=== PATIENT | female | born 1985 | race African-American/Black ===

== ENCOUNTER 2016-12-06 09:04 | Emergency (ER) | payer MEDICAID ==
[~2016-12-06] VITALS: Ht 170.2 cm; Wt 88.9 kg
[~2016-12-06 09:04] MED LIST: ALBUTEROL SULF8.5 GM INH; AZITHROMYCIN250 MG ORAL; BACTRIM DOUBLE S1 E1 ORAL; COLACE100 MG ORAL; CYCLOBENZAPRINE10 MG ORAL; FLONASE1 SPRAYS; IBUPROFEN800 MG ORAL; METROGEL-VAGINA70 G1 VAGIN; NITROFURANTOIN100 M2 ORAL; NORCO 5-325 TA1 EACH ORAL; PRILOSEC20 MG ORAL; PSEUDOEPHEDRIN120 MG PO; TAMIFLU75 MG ORAL; UNOBMED
[2016-12-06] MEDS ORDERED: ROBAXIN-750750 MG PO (09:29)
[2016-12-06] MEDS ORDERED: IBUPROFEN600 MG ORAL (09:29)
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
[2016-12-06 09:50] VITALS: BP 133/89
== END 2016-12-06 09:50 | disposition home or self-care (01) ==
LOC: EMR 09:31
DX: M54.2 Cervicalgia (principal); J45.909 Unspecified asthma, uncomplicated
CPT/HCPCS: 99284

== ENCOUNTER 2018-07-27 11:59 | Emergency (ER) | payer MEDICAID ==
[~2018-07-27] VITALS: Ht 170.2 cm; Wt 96.6 kg
[~2018-07-27 11:59] MED LIST changes: +IBUPROFEN600 MG ORAL; +ROBAXIN-750750 MG PO
[2018-07-27] MEDS ORDERED: NKM (12:14)
[2018-07-27 12:25] VITALS: BP 110/72
--- NOTE | 2018-07-27 12:25 | NUR ---
ED Nurse Note: pt walked in c/o upper back pain x 1 year denies trauma, pt was seen by ermd. pt not in acute distress. will continue to monitor.
[2018-07-27] MEDS ORDERED: Methocarbamol 750mg tab ORAL ONE (12:30)
[2018-07-27] MEDS ORDERED: IBUPROFEN600 MG ORAL (13:20)
[2018-07-27] MEDS ORDERED: LIDODERM700 M1 TOPIC (13:20)
[2018-07-27] MEDS ORDERED: ROBAXIN-750750 MG PO (13:20)
--- NOTE | 2018-07-27 13:32 | NUR ---
ED Nurse Note: pt cleared to be d/c per ERMD, pt discharge and aftercare instruction provided w/ prescription, pt advised to follow up with pcp or return to ed if changes in condition, pt education done via discussion and handout, pt verbalized understanding and agrees with plan, vss, ambulatory w/ steady gait, pt left w/ all belongings.
--- NOTE | 2018-07-27 14:24 | Emergency Room Report ---
History of Present Illness General Chief Complaint: Back Pain-No Injury Source: Patient Present Illness HPI 32-year-old female presents ED for evaluation. Complaining of back pain. Notes pain to the upper back. Sharp, 8 out of 10, nonradiating. Worse with twisting and bending. Denies any recent fall or injury. States she's had this pain for many years. Believes it has to do with her weight. Denies chest pain or shortness of breath. Denies flank pain. Denies nausea or vomiting. No other aggravating relieving factors. Denies any other associated symptoms Allergies: Coded Allergies: No Known Allergies (Unverified , 07/27/18) Patient History Past Medical History: asthma Past Surgical History: none Pertinent Family History: none Social History: Denies: smoking, alcohol use, drug use Last Menstrual Period: 07/19/18 Now: No Immunizations: UTD Reviewed Nursing Documentation: PMH: Agreed; PSxH: Agreed Nursing Documentation-PMH Past Medical History: No History, Except For Hx Asthma: Yes Review of Systems All Other Systems: negative except mentioned in HPI Physical Exam Vital Signs Date Time Temp Pulse Resp B/P (MAP) Pulse Ox O2 Delivery O2 Flow Rate FiO2 07/27/18 12:09 98.2 64 16 110/72 (85) 98 Room Air Sp02 EP Interpretation: reviewed, normal General Appearance: no apparent distress, alert, GCS 15, non-toxic, obese Head: normocephalic, atraumatic Eyes: bilateral eye normal inspection, bilateral eye PERRL ENT: hearing grossly normal, normal pharynx, no angioedema, normal voice Neck: full range of motion, supple/symm/no masses Respiratory: chest non-tender, lungs clear, normal breath sounds, speaking full sentences Cardiovascular #1: regular rate, rhythm, no edema Cardiovascular #2: 2+ carotid (R), 2+ carotid (L), 2+ radial (R), 2+ radial (L) , 2+ dorsalis pedis (R), 2+ dorsalis pedis (L) Gastrointestinal: normal bowel sounds, non tender, soft, non-distended, no guarding, no rebound Rectal: deferred Genitourinary: normal inspection, no CVA tenderness, no vertebral tenderness Musculoskeletal: gait/station normal, normal range of motion, other - paraspinal upper thoracic tenderness Neurologic: alert, oriented x3, responsive, motor strength/tone normal, sensory intact, speech normal Psychiatric: judgement/insight normal, memory normal, mood/affect normal, no suicidal/homicidal ideation Reflexes: 3+ bicep (R), 3+ bicep (L), 3+ tricep (R), 3+ tricep (L), 3+ knee (R) , 3+ knee (L) Skin: normal color, no rash, warm/dry, well hydrated Lymphatic: no adenopathy Medical Decision Making Diagnostic Impression: Primary Impression: Upper back pain ER Course Hospital Course 32-year-old female presents ED complaining of upper back pain. No evidence of trauma Differential diagnoses include: pyelonephritis, kidney stone, muscle strain, Lspine fracture Clinical course Patient placed on stretcher. After initial history, physical exam reveals female in no acute distress. There is no vertebral body tenderness. No flank pain. Some paraspinal upper thoracic tenderness noted. Based on my assessment pain is muscular. Does not require imaging. Patient agrees with assessment. I ordered motrin, robaxin and lidoderm Upon reassessment patient states pain has improved. Safe for discharge with close outpatient follow-up. States she has a PMD Diagnosis - upper back pain Stable and discharged to home with prescription for motrin, robaxin, lidoderm. Followup with PMD. Return to ED if symptoms recur or worsen Last Vital Signs Date Time Temp Pulse Resp B/P (MAP) Pulse Ox O2 Delivery O2 Flow Rate FiO2 07/27/18 13:32 98.0 90 16 118/76 98 Room Air Status: improved Disposition: HOME, SELF-CARE Condition: Stable Scripts Lidocaine (Lidoderm) 1 Each Adh..patch 1 PATCH TOPIC DAILY, #7 PATCH 0 Refills Patch(es) may remain in place for up to 12 hours in any 24-hour period. Prov: Matehw Cisneros MD 07/27/18 Methocarbamol* (ROBAXIN-750*) 750 Mg Tablet 750 MG PO QID, #28 TAB 0 Refills Prov: Mathew Cisneros MD 07/27/18 Ibuprofen* (MOTRIN*) 600 Mg Tablet 600 MG ORAL Q8H PRN for For Pain, #30 TAB 0 Refills Prov: Mathew Cisneros MD 07/27/18 Referrals: NON PHYSICIAN (PCP) Patient Instructions: Back Pain, Adult Koreyesakota,Mathew MD July 27, 2018 14:24
== END 2018-07-27 13:32 | disposition home or self-care (01) ==
LOC: EMR 13:25
DX: M54.6 Pain in thoracic spine (principal); J45.909 Unspecified asthma, uncomplicated
CPT/HCPCS: 99283

== ENCOUNTER 2018-11-04 19:31 | Emergency (ER) | payer MEDICAID ==
[~2018-11-04] VITALS: Ht 170.2 cm; Wt 94.3 kg
[~2018-11-04 19:31] MED LIST changes: +LIDODERM700 M1 TOPIC; +NKM
--- NOTE | 2018-11-04 19:44 | NUR ---
ED Nurse Note: Pt walked in c/o congestion, cough since 11/03. Pt worse throughout the day. Hx of asthma. Pt is AO x 4times, VSS, on room air no distress. ERMD seen Pt at bedside.
[2018-11-04] MEDS ORDERED: Albuterol ud Inhalation HHN ONE (19:45)
[2018-11-04] MEDS ORDERED: Ipratropium 0.02% Inh Soln 2.5ml UD HHN ONE (19:45)
[2018-11-04 19:48] VITALS: BP 134/72
--- NOTE | 2018-11-04 20:02 | NUR ---
ED Nurse Note: Breathing treatment at bedside.
[2018-11-04] MEDS ORDERED: PROAIR HFA8.5 GM INH (20:26)
[2018-11-04] MEDS ORDERED: PROMETHAZINE-D118 ML ORAL (20:26)
[2018-11-04] MEDS ORDERED: CLARITIN-D 241 EACH PO (20:26)
[2018-11-04 20:36] VITALS: BP 134/72
--- NOTE | 2018-11-04 20:37 | NUR ---
ER DISCHARGE NOTE: Patient is cleared to be discharged per ERMD, pt is aox4, on room air, with stable vital signs. pt was given dc and prescription instructions, pt was able to verbalize understanding, pt id band removed without complications. pt is able to ambulate with steady gait. pt took all belongings.
--- NOTE | 2018-11-04 22:17 | Emergency Room Report ---
History of Present Illness General Chief Complaint: Flu Like Symptoms Source: Patient Present Illness HPI Patient is a 32-year-old female with a history of asthma presenting for 2 days of shortness of breath with cough. She admits to nasal congestion as well and thinks she may be experiencing allergies. She states this feels like asthma but has not had symptoms in months. She tried albuterol which was and did not help. She denies any known sick contacts. She denies other symptoms including N, V, F, chills, rash, hemoptysis, abd pain Allergies: Coded Allergies: No Known Allergies (Unverified , 07/27/18) Patient History Past Medical History: see triage record Pertinent Family History: none Last Menstrual Period: 10/24/18 Now: No : 1 Para: 1 Reviewed Nursing Documentation: PMH: Agreed; PSxH: Agreed Nursing Documentation-PMH Hx Asthma: Yes Review of Systems All Other Systems: negative except mentioned in HPI Physical Exam Vital Signs Date Time Temp Pulse Resp B/P (MAP) Pulse Ox O2 Delivery O2 Flow Rate FiO2 11/04/18 19:34 99.1 100 18 125/78 (94) 96 Room Air 11/04/18 19:50 21 Sp02 EP Interpretation: reviewed, normal General Appearance: no apparent distress, alert, GCS 15, non-toxic Head: normocephalic, atraumatic Eyes: bilateral eye normal inspection, bilateral eye PERRL Respiratory: chest non-tender, lungs clear, no respiratory distress, no retraction, no accessory muscle use, speaking full sentences Cardiovascular #1: regular rate, rhythm, no edema Musculoskeletal: back normal, gait/station normal, normal range of motion, non- tender Neurologic: alert, oriented x3, responsive, motor strength/tone normal, sensory intact, speech normal Psychiatric: judgement/insight normal, memory normal, mood/affect normal, no suicidal/homicidal ideation Skin: no rash Lymphatic: no adenopathy Medical Decision Making PA Attestation Dr. Willis is my supervising physician. Patient management was discussed with my supervising physician Diagnostic Impression: Primary Impression: Asthma Qualified Codes: J45.21 - Mild intermittent asthma with (acute) exacerbation ER Course Patient is a 32-year-old female with a history of asthma presenting for 2 days of shortness of breath with cough Differential diagnoses considered but not limited to: Asthma exacerbation, bronchitis, pneumonia, anxiety Physical exam: Vitals within normal limits. No apparent distress HEENT exam is unremarkable Lungs: Decreased breath sounds bilaterally. Chest is nontender. No respiratory distress. No accessory muscle use. The patient was given a breathing treatment and is feeling much better. Lungs sounds have improved Patient is discharged home with a prescription for albuterol, claritin, and cough medication and will followup with PMD. ER precautions are given Last Vital Signs Date Time Temp Pulse Resp B/P (MAP) Pulse Ox O2 Delivery O2 Flow Rate FiO2 11/04/18 20:36 98.7 88 20 134/72 100 Room Air 21 Status: improved Disposition: HOME, SELF-CARE Condition: Improved Scripts D-Methorphan Hb/Prometh Hcl* (PROMETHAZINE-DM SYRUP*) 118 Ml Syrup 5 ML ORAL Q6H PRN for For Cough, #118 ML 0 Refills Prov: JUSTIN SORIANO P.A. 11/04/18 Loratadine/Pseudoephedrine (CLARITIN-D 24 HOUR TABLET) 1 Each Tab.er.24h 1 TAB PO DAILY, #30 TAB Prov: JUSTIN SORIANO P.A. 11/04/18 Albuterol Sulfate* (PROAIR HFA*) 8.5 Gm Hfa.aer.ad 2 PUFFS INH Q6H, #8.5 GM 0 Refills Prov: JUSTIN SORIANO P.A. 11/04/18 Patient Instructions: Asthma, Adult Additional Instructions: I discussed my findings with the patient. All questions and concerns have been answered. Treatment and medication compliance have been addressed. I advised the patient that they need to follow up with PMD in 3-5 days. Return to ED if symptoms worsen, new symptoms arise, or if needed for any reason. Patient verbalized understanding of discharge instructions. JUSTIN SORIANO Nov 04, 2018 22:17
== END 2018-11-04 20:36 | disposition home or self-care (01) ==
LOC: EMR 20:00
DX: J45.21 Mild intermittent asthma with (acute) exacerbation (principal)
CPT/HCPCS: 94640; 94664; Z7502; 99284

== ENCOUNTER 2018-12-05 13:33 | Emergency (ER) | payer MEDICAID ==
[~2018-12-05] VITALS: Ht 170.2 cm; Wt 94.8 kg
[~2018-12-05 13:33] MED LIST changes: +CLARITIN-D 241 EACH PO; +PROAIR HFA8.5 GM INH; +PROMETHAZINE-D118 ML ORAL
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
[2018-12-05 13:53] VITALS: BP 109/75
--- NOTE | 2018-12-05 13:59 | NUR ---
HAND-OFF: Report given to Joseph LEHMAN.
--- NOTE | 2018-12-05 14:01 | NUR ---
ED Nurse Note: PT RESTING WITN NO COMPLAINTS.
[2018-12-05] MEDS ORDERED: Acetaminophen 500mg (ES) tab ORAL ONE (14:30)
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
[2018-12-05] MEDS ORDERED: IBUPROFEN600 MG ORAL (14:35)
[2018-12-05] MEDS ORDERED: LIDODERM700 M1 TOPIC (14:35)
[2018-12-05] MEDS ORDERED: ROBAXIN-750750 MG PO (14:35)
[2018-12-05 14:43] VITALS: BP 115/79
--- NOTE | 2018-12-05 14:43 | NUR ---
ER DISCHARGE NOTE: Patient is cleared to be discharged per ERMD, pt is aox4, on room air, with stable vital signs. pt was given dc and prescription instructions, pt was able to verbalize understanding, pt id band and iv site removed without complications. pt is able to ambulate with steady gait. pt took all belongings. PT STATES PAIN IS 0/10
== END 2018-12-05 14:45 | disposition home or self-care (01) ==
LOC: EMR 13:48
DX: M54.5 Low back pain (principal); M54.6 Pain in thoracic spine; M62.830 Muscle spasm of back; J45.909 Unspecified asthma, uncomplicated
CPT/HCPCS: 99282

== ENCOUNTER 2019-01-03 09:50 | Emergency (ER) | payer MEDICAID ==
[~2019-01-03] VITALS: Ht 170.2 cm; Wt 94.3 kg
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
--- NOTE | 2019-01-03 11:30 | NUR ---
ED Nurse Note: pt walked in c/o DAVE Back pain and rtTHumb pain ERMD eval done pt refused motrin. ERMD informed.
[2019-01-03] MEDS ORDERED: ROBAXIN-500MG ORAL (11:47)
[2019-01-03] MEDS ORDERED: IBUPROFEN600 MG ORAL (11:47)
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
[2019-01-03 12:20] VITALS: BP 121/71
== END 2019-01-03 12:22 | disposition home or self-care (01) ==
LOC: EMR 10:20
DX: S06.0X0A Concussion without loss of consciousness, initial encounter (principal); S13.4XXA Sprain of ligaments of cervical spine, initial encounter; S39.012A Strain of muscle, fascia and tendon of lower back, initial encounter; S60.011A Contusion of right thumb without damage to nail, initial encounter; V43.52XA Car driver injured in collision with other type car in traffic accident, initial encounter; Y92.410 Unspecified street and highway as the place of occurrence of the external cause
CPT/HCPCS: 71045; 72040; 73130; Z7502; 99284

== ENCOUNTER 2019-02-21 01:48 | Emergency (ER) | payer MEDICAID ==
[~2019-02-21] VITALS: Ht 170.2 cm; Wt 94.8 kg
[~2019-02-21 01:48] MED LIST changes: +ROBAXIN-500MG ORAL
[2019-02-21 02:10] VITALS: BP 128/85
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
--- NOTE | 2019-02-21 02:30 | NUR ---
ED Nurse Note: ERMD and RN at bedside.
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
[2019-02-21] MEDS ORDERED: Lidocaine 1% MPF 10mg/ml 5ml INJ ONE (03:15)
[2019-02-21] MEDS ORDERED: Azithromycin 250mg tab ORAL ONE (03:15)
--- NOTE | 2019-02-21 03:48 | NUR ---
ED Nurse Note: ERMD and RN at bedside for external vaginal exam.
[2019-02-21 04:13] LABS: APPEARANCE,URINE CLEAR; BILIRUBIN, URINE NEGATIVE (NEGATIVE); GLUCOSE, URINE (UA) NEGATIVE (NEGATIVE); KETONES,URINE 4+ (NEGATIVE); LEUKOCYTE ESTERASE ,URINE 1+ (NEGATIVE); NITRITE,URINE NEGATIVE (NEGATIVE); PH,URINE 5 (4.5-8.0); PROTEIN,URINE 1+ (NEGATIVE); UROBILINOGEN,URINE NORMAL MG/DL (0.0-1.0)
[2019-02-21 04:17] LABS: COLOR,URINE YELLOW
[2019-02-21 04:36] VITALS: BP 128/85
--- NOTE | 2019-02-21 04:36 | NUR ---
ED Nurse Note: Pt cleared by ERMD for discharge. DC instructions was given and explained to pt and verbalized understanding of teachings. All medical deviecs such as ID band removed. Pt is AAO x4, ambulatory and left with all personal belongings. Patient was instructed to go directly to [facility], [place].
== END 2019-02-21 04:36 | disposition home or self-care (01) ==
LOC: EMR 02:23
DX: T74.21XA Adult sexual abuse, confirmed, initial encounter (principal); J45.909 Unspecified asthma, uncomplicated; F17.200 Nicotine dependence, unspecified, uncomplicated; Z72.89 Other problems related to lifestyle
CPT/HCPCS: 81003; 81025; 87491; 87590; 96372; 96374; J0696; Q0144; Z7502; 99284

== ENCOUNTER 2020-04-15 23:14 | Emergency (ER) | payer MEDICAID ==
[~2020-04-15] VITALS: Ht 170.2 cm; Wt 91.6 kg
[2020-04-16 00:02] VITALS: BP 125/86
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
[2020-04-16] MEDS ORDERED: Acetaminophen 500mg (ES) tab ORAL ONE (00:15)
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
[2020-04-16] MEDS ORDERED: Ketorolac 30mg Inj ONE (00:55)
[2020-04-16] MEDS ORDERED: Ketorolac 30mg Inj IM ONE (01:00)
--- NOTE | 2020-04-16 01:00 | NUR ---
ED Nurse Note: Pt is refusing pain medication ordered by ER MD even with no change of pain level from previous assement
--- NOTE | 2020-04-16 01:30 | NUR ---
ED Nurse Note: Pt left for CT
--- NOTE | 2020-04-16 02:12 | NUR ---
ED Nurse Note: Pt back from CT
--- NOTE | 2020-04-16 02:50 | Diagnostic Imaging Report ---
EXAM: CT Head Without Intravenous Contrast CLINICAL HISTORY: PAIN TECHNIQUE: Axial computed tomography images of the head/brain without intravenous contrast. CTDI is 12 mGy and DLP is 449 mGy-cm. One or more of the following dose reduction techniques were used: automated exposure control, adjustment of the mA and/or kV according to patient size, use of iterative reconstruction technique. COMPARISON: No relevant prior studies available. FINDINGS: Brain: Unremarkable. No hemorrhage. No significant white matter disease. No edema. Ventricles: Unremarkable. No ventriculomegaly. Bones/joints: Unremarkable. No acute fracture. Soft tissues: Unremarkable. Sinuses: There is mucosal thickening of the sphenoid sinus. Mastoid air cells: Unremarkable as visualized. No mastoid effusion. IMPRESSION: No acute intracranial pathology.
--- NOTE | 2020-04-16 02:55 | Diagnostic Imaging Report ---
EXAM: CT Thoracic Spine Without Intravenous Contrast CLINICAL HISTORY: PAIN TECHNIQUE: Axial computed tomography images of the thoracic spine without intravenous contrast. CTDI is 12 mGy and DLP is 449 mGy-cm. One or more of the following dose reduction techniques were used: automated exposure control, adjustment of the mA and/or kV according to patient size, use of iterative reconstruction technique. COMPARISON: No relevant prior studies available. FINDINGS: Vertebrae: Unremarkable. No acute fracture. Discs/spinal canal/neural foramina: No acute findings. No spinal canal stenosis. Soft tissues: Unremarkable. IMPRESSION: No acute findings.
[2020-04-16] MEDS ORDERED: NAPROXEN CR500 MG PO (03:12)
[2020-04-16] MEDS ORDERED: ROBAXIN-750750 MG PO (03:12)
--- NOTE | 2020-04-16 03:44 | Diagnostic Imaging Report ---
EXAM: CT Chest Without Intravenous Contrast CLINICAL HISTORY: PAIN TECHNIQUE: Axial computed tomography images of the chest without intravenous contrast. CTDI is 12 mGy and DLP is 449 mGy-cm. One or more of the following dose reduction techniques were used: automated exposure control, adjustment of the mA and/or kV according to patient size, use of iterative reconstruction technique. COMPARISON: No relevant prior studies available. FINDINGS: Lungs: There is a 2 mm nodule in the left lower lobe image 36 series 6. In the absence of prior risk factors this is likely benign. The lungs are otherwise clear. Pleural space: Unremarkable. No pneumothorax. No significant effusion. Heart: Unremarkable. No cardiomegaly. No significant pericardial effusion. Bones/joints: Unremarkable. No acute fracture. No dislocation. Soft tissues: Unremarkable. Vasculature: Unremarkable. No thoracic aortic aneurysm. Lymph nodes: Unremarkable. No enlarged lymph nodes. IMPRESSION: No acute findings.
[2020-04-16 04:02] VITALS: BP 135/82
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
--- NOTE | 2020-04-16 04:07 | NUR ---
ER DISCHARGE NOTE: Patient is cleared to be discharged per ERMD, pt is aox4, on room air, with stable vital signs. pt was given dc and prescription instructions, pt was able to verbalize understanding, pt id band removed. pt is able to ambulate with steady gait. pt took all belongings. pt left in a private car
== END 2020-04-16 04:00 | disposition home or self-care (01) ==
LOC: EMR 23:55
DX: S13.4XXA Sprain of ligaments of cervical spine, initial encounter (principal); M62.838 Other muscle spasm; M54.2 Cervicalgia; R91.1 Solitary pulmonary nodule; J45.909 Unspecified asthma, uncomplicated; V43.52XA Car driver injured in collision with other type car in traffic accident, initial encounter; Y92.411 Interstate highway as the place of occurrence of the external cause
CPT/HCPCS: 70450; 71250; 72125; 72128; 81025; Z7502; 99284